=== PATIENT | male | born 1980 | race Caucasian/White ===

== ENCOUNTER 2018-02-13 09:25 | Emergency (ER) | payer SELFPAY ==
--- NOTE | 2018-02-13 10:42 | RAD ---
CHEST TWO VIEWS: 02/13/2018 HISTORY: Cough and congestion with chills. COMPARISON: None. FINDINGS: There is a focal area of consolidative change involving the inferomedial right base with an anterior correlate on the lateral examination, suggesting partial consolidation of the right middle lobe. The left lung appears clear. No pneumothorax or pleural fluid. IMPRESSION: Focal opacity in the right middle lobe, suggesting pneumonia. Recommend follow-up chest radiograph, following treatment, to document resolution. POS: [facility]
[2018-02-13 10:45] LABS: ALT (SGPT) 17 U/L (8-55); AST (SGOT) 14 U/L (5-34); Alkaline Phosphatase 114 U/L (40-150); Anion Gap 16 mmol/L (10-20); BUN (Urea Nitrogen) 15 mg/dL (8.9-20.6); Bilirubin, Total 0.6 mg/dL (0.2-1.2); Calc. Creatinine Clearance 0 mL/min (70-130); Carbon Dioxide 25 mmol/L (22-29); Chloride 93 mmol/L (98-107); Estimated GFR-MDRD 88; Globulin 3.6 g/dL (2.4-3.5); Glucose 135 mg/dL (70-105); Lipase 15 U/L (8-78); Protein, Total 7.6 g/dL (6.0-8.3); Sodium 130 mmol/L (136-145)
[2018-02-13 11:06] LABS: Hemoglobin 15.1 g/dL (14.0-18.0); Mean Corpuscular HGB CONC 32.6 g/dL (32.0-36.0); Mean Corpuscular Hemoglobin 30.2 pg (27.0-31.0); Mean Corpuscular Volume 92.7 fL (78.0-98.0); Mean Platelet Volume 7.6 fL (7.4-10.4); Platelet Count 223 thou/uL (130-400); RBC Distribution Width 12.1 % (11.5-14.5); Red Blood Cell (RBC) Count 4.99 mill/uL (4.70-6.10); White Blood Cell (WBC) Count 13.9 thou/uL (4.8-10.8)
[2018-02-13 11:08] LABS: Band 12 % (5-11); Lymphocytes 9 % (21-51); MDiff Complete? YES; Monocytes 8 % (0-10); Neutrophil 71 % (42-75); RBC Morphology Normal
== END 2018-02-13 13:06 | disposition home or self-care (01) ==
LOC: ERS 09:25
DX: J18.1 Lobar pneumonia, unspecified organism (principal); F17.210 Nicotine dependence, cigarettes, uncomplicated
CPT/HCPCS: 36415; 71046; 80053; 83690; 84484; 85025; 87804; 93005

== ENCOUNTER 2023-12-14 00:29 | Emergency (ER) | payer SELFPAY | END 2023-12-14 01:47 | disposition home or self-care (01) | LOC: ERS 00:29 | DX: M79.674 Pain in right toe(s) (principal); F17.210 Nicotine dependence, cigarettes, uncomplicated; W22.8XXA Striking against or struck by other objects, initial encounter | CPT/HCPCS: 99283 ==